=== PATIENT | male | born 1940 | race Caucasian/White ===

== ENCOUNTER 2017-08-25 19:12 | Inpatient (IN) | payer OTHER ==
[~2017-08-25] VITALS: Ht 177.8 cm; Wt 70.8 kg
--- NOTE | ~2017-08-25 | HC ---
[facility] [place] [address] CONSULTATION Name: SAVI WALLACE Room #: 357-P [facility]..#: [id number] Admission: 08/25/17 Attend Phys: Jin Roblero DO Discharge: 08/28/17 Date of : 38 Report #: [id number] THIS REPORT FOR: //name// CC: Jin Fragoso REASON FOR CONSULTATION: Elevated creatinine. REASON FOR PRESENTATION: Shortness of breath. HISTORY OF PRESENT ILLNESS: This is a 76-year-old who is known to have extensive past medical history including coronary artery disease, progressive aortic stenosis with an ejection fractions of around 40%. He is also known to have chronic kidney disease, used to see Dr. Lopez with [facility]; however, he had not seen him for the last few years. He presented with shortness of breath and orthopnea along with PNDs. No associated cough. No fever or chills. No change in the weight. No change in the medications. On presentation to the emergency room, he was found to have an elevated creatinine at 2.6. His remote labs revealed as of 2005, his creatinine was around 2.1. Most recent creatinine was up to 3.3 as of this morning mandating a nephrology consultation. As I have stated, he is known to have chronic kidney disease; however, unfortunately he did not follow up with his physicians for some years now. PAST MEDICAL HISTORY: 1. Status post CABG. 2. Diabetes mellitus. 3. Hyperlipidemia. 4. AFib. 5. Aortic stenosis. MEDICATIONS: 1. Doxycycline. 2. Glipizide. 3. Aspirin. 4. Allopurinol. 5. Atorvastatin. 6. Felodipine. 7. Carvedilol. ALLERGIES: PENICILLIN. SOCIAL HISTORY: He was exposed to asbestos. Never been a smoker. FAMILY HISTORY: Premature coronary artery disease present. REVIEW OF SYSTEMS: [facility] [address] [place] [address] CONSULTATION Name: MADISONSAVI Tu Room #: 357-P [facility]#: [id number] Admission: 08/25/17 Attend Phys: Jin Roblero DO Discharge: 08/28/17 Date of : 38 Report #: [id number] GENERAL: Significant for weakness. CARDIOVASCULAR: As per the history of present illness. PULMONARY: Significant shortness of breath. GASTROINTESTINAL: No nausea or vomiting. GENITOURINARY: No frequency, no urgency. PHYSICAL EXAMINATION: VITAL SIGNS: Blood pressure 129/64. HEAD AND NECK: No jugular venous distention. CHEST: Minimal rhonchi. CARDIOVASCULAR: Regular with no rub. There is a blowing systolic murmur aortic stenosis. ABDOMEN: Soft and nontender. LOWER EXTREMITIES: No edema. LABORATORY VALUES: Reviewed. Thrombocytopenia, present. With diuresis, his BUN and his creatinine has . IMAGING: Including his chest x-ray reviewed. ASSESSMENT, IMPRESSION, AND PLAN: 1. Chronic kidney disease. 2. Severe aortic stenosis. 3. Coronary artery disease, post coronary artery bypass graft. 4. From the renal perspective, the patient seems to have chronic kidney disease with lack of followup with his upfitter. I encouraged him to keep following up with his upfitter. He needs a baseline diuretics and he was started on torsemide. 5. Avoid aggressive diuresis. Most of his symptoms are due to his aortic stenosis and I will defer the management of his coronary artery disease, aortic stenosis to the primary team and the cardiology. <ELECTRONICALLY SIGNED> By: Jam Cabezas MD 08/30/17 0953 1020 1043 Jam Cabezas MD /nt
--- NOTE | ~2017-08-25 | EKG ---
[place] [address] [facility] [employer] [place] [address] ELECTROCARDIOGRAM REPORT Name: SAVI WALLACE Room #: 357-P ADM IN M.R.#: [id number] Admission: 08/25/17 Attend Phys: Jin Roblero DO Discharge: Date of : 38 Report #: [id number] THIS REPORT FOR: //name// [facility] ED Test Date: 2017-08-25 Test Time: 19:26:38 Pat Name: SAVI WALLACE Department: Room: 357 Gender: M Ovens Supervisor: JENNIFER : 1940 Requested By: Agusto Villalpando Order Number: [id number] MD: Anoop Dong Measurements Intervals [place] Rate: 82 P: 66 NE: 60 QRS: -86 QRSD: 171 T: 88 QT: 472 QTc: 552 Interpretive Statements Sinus rhythm Leftward axis Left bundle branch block No previous ECGs available for comparison Electronically Signed On 08-26-2017 10:10:25 SOLUTIONS ANALYST by Anoop Dong [email or web address] <ELECTRONICALLY SIGNED> By: Anoop Dong MD, [facility] 08/26/17 1010 1926 25 Anoop Dong MD, FACC /EPI
--- NOTE | ~2017-08-25 | HC ---
[facility] [place] [address] CONSULTATION Name: MADISONSAVI Room #: 357-P [facility] IN ..#: [id number] Admission: 08/25/17 Attend Phys: Jin Roblero DO Discharge: Date of : 38 Report #: [id number] THIS REPORT FOR: //name// CC: Jin Fragoso REASON FOR CONSULTATION: Shortness of breath. HISTORY OF PRESENT ILLNESS: The patient is a 76-year-old gentleman who is a patient of Dr. Garret Dewey. He has a history of coronary artery disease with remote bypass surgery with a left internal mammary to the LAD, vein graft to the posterior descending and vein graft to the diagonal branches. He has a history of progressive aortic stenosis, probably now severe and an ejection fraction in the 40-45% range. He underwent coronary angiography within the year, which demonstrated a patent CARROLL vein graft to distal right coronary and diagonal branches and moderate [place] vessel disease. He is vein graft dependent. An echocardiogram in October 2016, demonstrated an aortic valve area of 0.7 cm2 with an ejection fraction in the 40-45% range and [id number] mitral insufficiency. Valve intervention has been discussed, although not as of yet performed. to complicate matters his history includes chronic kidney disease and asbestosis. He now presents with increasing shortness of breath with orthopnea and paroxysmal nocturnal dyspnea. He has had a nonproductive cough. He denies fevers or chills. He has had mild lower extremity edema. He denies chest heaviness or pressure. No history of palpitations, near syncope, or syncope. ALLERGIES: To PENICILLIN and IODINATED CONTRAST. MEDICATIONS: Include glipizide 15 mg daily, aspirin, Januvia 50 mg daily, allopurinol 100 mg daily, terazosin 10 mg daily, atorvastatin 80 mg daily, Zantac, felodipine ER 10 mg twice daily, carvedilol 25 mg twice daily, Plavix 75 mg daily, and clonidine 0.2 mg daily. PAST MEDICAL HISTORY: Medical records have been reviewed and include a history of right femoral endarterectomy, bilateral lower extremity stenting, chronic kidney disease, coronary artery bypass grafting in 2005 at [facility], prostatectomy for prostate cancer, dyslipidemia, and longstanding diabetes. SOCIAL HISTORY: He has never been a smoker. 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 FAMILY HISTORY: Notable for premature coronary artery disease. REVIEW OF SYSTEMS: All systems negative [place] [address] CONSULTATION Name: SAVI WALLACE Room #: 357-P [facility] IN ..#: [id number] Admission: 08/25/17 Attend Phys: Jin Roblero DO Discharge: Date of : 38 Report #: [id number] PHYSICAL EXAMINATION: GENERAL: He is a pleasant gentleman who is mildly dyspneic, although talking in full sentences. VITAL SIGNS: Blood pressure is 120/58, heart rate of 100 and regular, he is afebrile, 5 feet 10 inches tall, and 156 pounds. HEENT: There are neither xanthelasma, subcutaneous xanthomata, oral mucosal or digital cyanosis or kyphoscoliosis present. CHEST: Reveals diminished breath sounds at both bases. CARDIAC: Reveals regular rate and rhythm with harsh 3/6 systolic ejection murmur at the base. Jugular venous pressure is elevated today at angle of the mandible. ABDOMEN: Soft and nontender. EXTREMITIES: Reveal trace edema. Radial pulses are 2+. NEUROLOGIC: He is alert with a nonfocal exam. LABORATORY DATA: Sodium is 141, potassium 4.8, creatinine 2.6. ProBNP of 16,000. Troponin 2.56. White count 7.5, hemoglobin 10, hematocrit 30, platelet count 73,000. Chest x-ray demonstrates cardiomegaly with interstitial infiltrates. IMPRESSION: 1. Acute on chronic systolic heart failure, ejection fraction 40-45%. 2. Aortic stenosis, probably severe. 3. Coronary artery disease with remote bypass surgery, vein graft dependent circulation with recent favorable angiography. 4. Elevated troponin, suspect type 2 myocardial infarction, supply demand mismatch in the setting of hypoxemia, heart failure and renal failure. No angina. 5. Chronic kidney disease. 6. Peripheral vascular disease with peripheral stenting. 7. Prior carotid endarterectomy. 8. History of asbestosis. RECOMMENDATIONS: 1. IV Lasix. 2. Echocardiogram with Doppler. 3. Dietary salt restriction. 4. We will review fairly recent coronary angiography, may need to look into the possibility of aortic valve replacement sooner rather than later. His surgical risk is high and he probably would qualify for TAVR, we will defer this Dr. Dewey. [address] [address] CONSULTATION Name: SAVI WALLACE Room #: 357-P [facility] IN M.R.#: [id number] Admission: 08/25/17 Attend Phys: Jin Roblero DO Discharge: Date of : 38 Report #: [id number] Thank you for asking me to participate in his care. <ELECTRONICALLY SIGNED> By: Anoop Dong MD, FACC 08/28/17 0853 0923 1226 Anoop Dong MD, FACC /nt
[2017-08-25 19:14] VITALS: BP 138/57
[2017-08-25 19:49] LABS: HEMATOCRIT 30.2 % (42.0-52.0); HEMOGLOBIN 10.4 gm/dL (14.0-18.0); MCH 30.8 pg (26.0-34.0); MCHC 34.3 g/dL (28.0-37.0); MCV 89.9 fL (80.0-100.0); RBC 3.36 mil/uL (4.50-6.00); RDW 15.2 % (10.5-14.5); WBC 7.5 thou/uL (4.0-11.0)
[2017-08-25] MEDS ORDERED: ASPIRIN325 PO (19:52)
[2017-08-25] MEDS ORDERED: COLACE100 MG PO (19:52)
[2017-08-25] MEDS ORDERED: ALLOPURINOL 10100 M2 PO (19:53)
[2017-08-25] MEDS ORDERED: KIONEX15 GM/60 M PO (19:54)
[2017-08-25] MEDS ORDERED: JANUVIA 50 MG T50 M1 PO (19:55)
[2017-08-25] MEDS ORDERED: TERAZOSIN HCL10 MG PO (19:55)
[2017-08-25] MEDS ORDERED: ZANTAC 150MG T150 MG PO (19:56)
[2017-08-25] MEDS ORDERED: LIPITOR80 MG PO (19:56)
[2017-08-25] MEDS ORDERED: NATEGLINIDE120 MG PO (19:57)
[2017-08-25] MEDS ORDERED: FELODIPINE ER10 MG PO (19:57)
[2017-08-25] MEDS ORDERED: COREG25 MG PO (19:58)
[2017-08-25] MEDS ORDERED: PLAVIX 75 MG TA75 M1 PO (19:58)
[2017-08-25] MEDS ORDERED: CLONIDINE HCL0.2 M2 PO (19:59)
[2017-08-25 20:02] LABS: CALCIUM 9.1 mg/dL (8.5-10.1); CREATININE 2.6 mg/dL (0.7-1.3); POTASSIUM 4.8 mmol/L (3.5-5.1)
[2017-08-25 20:11] LABS: ALBUMIN 3.7 g/dL (3.4-5.0); MAGNESIUM 2.4 mg/dL (1.8-2.4); TOTAL BILIRUBIN 0.6 mg/dL (<0.1-1.0); TOTAL PROTEIN 6.6 g/dL (6.4-8.2); TROPONIN-I 0.1 ng/mL (<0.06)
[2017-08-25 20:21] LABS: ABSOLUTE NEUTROPHILS 6.3 thou/uL (1.4-8.2); LARGE PLATELETS OCCASIONAL; PLATELET COUNT 73 thou/uL (150-400); PLATELET ESTIMATE DECREASED; POLYCHROMASIA SLIGHT
[2017-08-25 20:22] LABS: ANISOCYTOSIS SLIGHT
[2017-08-25 20:25] LABS: APTT 29.9 Seconds (24.5-32.8); INR 1.2
[2017-08-25 21:50] VITALS: BP 116/54
[2017-08-25] MEDS ORDERED: DOXYCYCLINE 10100 MG PO (23:35)
[2017-08-26] VITALS (7 sets, daily range): BP systolic 106–120; BP diastolic 58–67
[2017-08-26] MEDS ORDERED: KIONEX15 GM/60 M PO (01:48)
[2017-08-26] MEDS ORDERED: CENTRUM SILVER1 EAC4 PO (01:50)
[2017-08-26] MEDS ORDERED: METAMUCIL660 GM PO (01:53)
[2017-08-26] MEDS ORDERED: VITAMIN D1000 UNI1 PO (01:54)
[2017-08-26] MEDS ORDERED: GLUCOTROL5 MG PO (01:57)
[2017-08-26 08:26] LABS: CHOLESTEROL 105 mg/dL (<200); HDL CHOLESTEROL 49 mg/dL (>40); LDL CHOLESTEROL 47 mg/dL (<100); TC:HDL 2.1 Ratio (Not establshd); TRIGLYCERIDE 47 mg/dL (<150); VLDL 9 mg/dL (<40)
[2017-08-26 08:29] LABS: SERUM ASSESSMENT Clear
[2017-08-26 23:05] LABS: GLYCOHEMOGLOBIN (HGB A1C) 5.7 % (4.8-5.6)
[2017-08-27 04:15] VITALS: BP 136/69
[2017-08-27 07:03] LABS: CALCIUM 8.5 mg/dL (8.5-10.1); CREATININE 3.3 mg/dL (0.7-1.3)
[2017-08-27 07:55] VITALS: BP 136/63
[2017-08-27 11:55] VITALS: BP 110/49
[2017-08-27 15:24] VITALS: BP 118/51
[2017-08-27 19:10] VITALS: BP 148/64
[2017-08-28 03:53] VITALS: BP 138/82
[2017-08-28 04:37] LABS: ABSOLUTE NEUTROPHILS 4.6 thou/uL (1.4-8.2); BASOPHILS 0.5 % (0.0-2.0); EOSINOPHILS 2.8 % (0.0-3.0); HEMATOCRIT 29.5 % (42.0-52.0); HEMOGLOBIN 9.8 gm/dL (14.0-18.0); LYMPHOCYTES 12.1 % (24.0-44.0); MCH 30.1 pg (26.0-34.0); MCHC 33.1 g/dL (28.0-37.0); MCV 90.9 fL (80.0-100.0); MONOCYTES 11.5 % (1.0-8.0); PLATELET COUNT 91 thou/uL (150-400); POLYS 73.1 % (36.0-66.0); RBC 3.24 mil/uL (4.50-6.00); RDW 15.1 % (10.5-14.5); WBC 6.2 thou/uL (4.0-11.0)
[2017-08-28 04:50] LABS: ALBUMIN 3.1 g/dL (3.4-5.0); CALCIUM 8.7 mg/dL (8.5-10.1); CREATININE 3.3 mg/dL (0.7-1.3); POTASSIUM 4.7 mmol/L (3.5-5.1); TOTAL BILIRUBIN 0.5 mg/dL (<0.1-1.0); TOTAL PROTEIN 6.2 g/dL (6.4-8.2)
[2017-08-28 07:42] VITALS: BP 129/64
[2017-08-28] MEDS ORDERED: CEFDINIR300 MG PO (10:14)
[2017-08-28] MEDS ORDERED: DEMADEX20 MG PO (10:33)
[2017-08-28 11:56] VITALS: BP 129/64
== END 2017-08-28 13:24 | disposition home or self-care (01) | DRG 280 ==
LOC: ER 19:12 → 3W 21:02 → EROBS 21:02 → 3W 22:50 → ENTRNSPT 08-28 13:06 → EDTRNSPTSTS 08-28 13:08 → 3W 08-28 13:24
PROVIDERS: Emergency Medicine; Internal Medicine; Nurse Practitioner Acute Care; Nurse Practitioner Family
DX: I21.4 Non-ST elevation (NSTEMI) myocardial infarction (principal); I50.23 Acute on chronic systolic (congestive) heart failure; I13.0 Hypertensive heart and chronic kidney disease with heart failure and stage 1 through stage 4 chronic kidney disease, or unspecified chronic kidney disease; D69.6 Thrombocytopenia, unspecified; E11.51 Type 2 diabetes mellitus with diabetic peripheral angiopathy without gangrene; I48.0 Paroxysmal atrial fibrillation; I25.10 Atherosclerotic heart disease of native coronary artery without angina pectoris; I35.0 Nonrheumatic aortic (valve) stenosis; N18.3 Chronic kidney disease, stage 3 (moderate); E78.00 Pure hypercholesterolemia, unspecified; Z95.1 Presence of aortocoronary bypass graft; Z90.79 Acquired absence of other genital organ(s); Z79.82 Long term (current) use of aspirin; Z95.820 Peripheral vascular angioplasty status with implants and grafts; Z79.899 Other long term (current) drug therapy; Z88.0 Allergy status to penicillin; Z91.041 Radiographic dye allergy status; I25.2 Old myocardial infarction; Z82.49 Family history of ischemic heart disease and other diseases of the circulatory system
CPT/HCPCS: 10879

== ENCOUNTER 2018-08-27 23:06 | Inpatient (IN) | payer OTHER ==
[~2018-08-27] VITALS: Ht 177.8 cm; Wt 65.8 kg
--- NOTE | ~2018-08-27 | HC ---
[facility] [address] CONSULTATION Name: MADISONSAVI Room #: 202-P [facility] IN ..#: [id number] Admission: 08/28/18 Attend Phys: Osman Man MD Discharge: Date of : 38 Report #: [id number] THIS REPORT FOR: //name// CC: Rashaun Man Wes Fragoso DATE OF SERVICE: 08/28/2018 NEPHROLOGY CONSULTATION REASON FOR CONSULTATION: Elevated creatinine. HISTORY OF PRESENT ILLNESS: The patient is known to our service, was seen 1 year ago when he was admitted at that time with pulmonary issues and was found to have chronic kidney disease with creatinine of 3.3, had been followed for some time by Dr. Lopez, was lost to follow up and has continued to not follow up with his visiting teacher even after discharge at that time despite being advised to follow up. The patient has critical and severe aortic stenosis, was referred for TAVR at [facility], was turned down for the procedure due to high risk. He has a bad mitral valve, poor LV function and chronic kidney disease, all of which made him a poor candidate for surgery. At this time, he was admitted with basically shortness of air with some chest discomfort. His echocardiogram done today shows worsening disease. PAST MEDICAL HISTORY: He has had previous coronary bypass surgery as well as stent placement for coronary artery disease as mentioned, has the poor cardiac functioning. In addition, he has a history of hypertension, peripheral arterial disease, diabetes, and history of prostate cancer. HOME MEDICATIONS: As listed include allopurinol 100 mg daily, aspirin 325 mg daily, Lipitor 80 mg daily, carvedilol 25 mg b.i.d., vitamin D 1000 units daily, clonidine 0.2 mg daily, Plavix 75 mg daily, felodipine 10 mg daily, Kayexalate 15 grams daily, terazosin 10 mg daily, torsemide 40 mg daily. FAMILY HISTORY: Positive for heart disease, lung cancer and diabetes. REVIEW OF SYSTEMS: GENERAL: He has been feeling poorly, easily short-winded, occasional leg swelling. EYES: Vision is fair. ENT: Hearing okay. Swallows okay. No mouth sores. ENDOCRINE: Positive for the diabetes. RESPIRATORY: Easily short-winded. [address] [address] CONSULTATION Name: SAVI WALLACE Room #: 202-P [facility] IN ..#: [id number] Admission: 08/28/18 Attend Phys: Osman Man MD Discharge: Date of : 38 Report #: [id number] CARDIAC: Some chest pain. GASTROINTESTINAL: Appetite is fair. No diarrhea or bloody stools. GENITOURINARY: He says he has a pretty good stream. NEUROLOGIC: Generalized weakness. No seizure, syncope or stroke. PHYSICAL EXAMINATION: GENERAL: This is a chronically ill appearing patient. SKIN: Unremarkable. SKELETAL: Well developed, well nourished. HEENT: Extraocular movements are full. No scleral icterus. Hearing and vision intact. Mucous membranes are moist. Tongue, buccal mucosa benign. NECK: Supple, no carotid bruits or lymphadenopathy. CHEST: Clear to auscultation. HEART: Regular with a very prominent systolic murmur. ABDOMEN: Soft and nontender. EXTREMITIES: Show no edema. Pulses slightly diminished. LABORATORY DATA: The hemoglobin is only 8, platelets 129. Sodium 142, potassium 4, chloride 107, bicarbonate 22, creatinine 3.6, BUN 96. ASSESSMENT AND PLAN: 1. Chronic kidney disease. He has chronic kidney disease of really unknown etiology. There is certainly some component of cardiorenal involvement here. His urinalysis has not been done of late and we will check that with urine protein studies. His renal sonogram in the past has been okay. This is really an ancillary issue at this point as he has terminal cardiac failure, which is not amenable to intervention apparently and is certainly a candidate at this point for hospice or palliative care based on his cardiac situation. 2. Critical aortic stenosis. 3. Heart failure with reduced ejection fraction. 4. Mitral regurgitation. 5. Pulmonary hypertension. 6. History of prostate cancer. 7. History of hypertension. By: 1202 1734 Garret Smith MD /nt
[~2018-08-27 23:06] MED LIST: ALLOPURINOL 10100 M2 PO; ASPIRIN325 PO; CEFDINIR300 MG PO; CENTRUM SILVER1 EAC4 PO; CLONIDINE HCL0.2 M2 PO; COLACE100 MG PO; COREG25 MG PO; DEMADEX20 MG PO; DOXYCYCLINE 10100 MG PO; FELODIPINE ER10 MG PO; GLUCOTROL5 MG PO; JANUVIA 50 MG T50 M1 PO; KIONEX15 GM/60 M PO; LIPITOR80 MG PO; METAMUCIL660 GM PO; NATEGLINIDE120 MG PO; PLAVIX 75 MG TA75 M1 PO; TERAZOSIN HCL10 MG PO; VITAMIN D1000 UNI1 PO; ZANTAC 150MG T150 MG PO
[2018-08-27 23:08] VITALS: BP 120/63
[2018-08-27 23:31] LABS: ABSOLUTE NEUTROPHILS 8.6 thou/uL (1.4-8.2); BASOPHILS 0.8 % (0.0-2.0); EOSINOPHILS 1.8 % (0.0-3.0); HEMATOCRIT 23.1 % (42.0-52.0); HEMOGLOBIN 7.7 gm/dL (14.0-18.0); MCH 28.9 pg (26.0-34.0); MCHC 33.2 g/dL (28.0-37.0); MCV 86.9 fL (80.0-100.0); MONOCYTES 7.5 % (1.0-8.0); PLATELET COUNT 130 thou/uL (150-400); POLYS 81.9 % (36.0-66.0); RBC 2.66 mil/uL (4.50-6.00); RDW 15.6 % (10.5-14.5); WBC 10.6 thou/uL (4.0-11.0)
[2018-08-27 23:36] LABS: CALCIUM 8.2 mg/dL (8.5-10.1); CREATININE 3.7 mg/dL (0.7-1.3); POTASSIUM 3.9 mmol/L (3.5-5.1)
[2018-08-27 23:42] LABS: APTT 27.4 Seconds (24.5-32.8); INR 1.1; PROTIME 11.9 Seconds (9.3-11.4)
[2018-08-27 23:45] LABS: ALBUMIN 3.3 g/dL (3.4-5.0); TOTAL BILIRUBIN 0.3 mg/dL (<0.1-1.0); TOTAL PROTEIN 6.4 g/dL (6.4-8.2); TROPONIN-I 0.06 ng/mL (<0.06)
[2018-08-27 23:57] LABS: LARGE PLATELETS RARE
[2018-08-28] VITALS (8 sets, daily range): BP systolic 111–121; BP diastolic 57–666
--- NOTE | 2018-08-28 03:42 | NUR ---
PT ARRIVED UNIT AT ABOUT 0030. PT A/OX4, VITALS SIGNS STABLE, ASSESSMENT CHARTED. NO COMPLAINTS OF CHEST PAIN ON ARRIVAL. PT WAS ON HEPARIN DRIP GOING AT 11.99UNIT/KG/HR, ON 2L NC 02. ADMISSION ASSESSMENT COMPLETED, PT ABLE TO ANSWER QUESTIONS APPROPRIATELY. PT AMBULATED TO BATHROOM X1 ASSIST. UPON RETURNING TO BED FROM BATHROOM, PT WAS SOA. 02 INCREASED TO 4L WHICH SEEMED TO HELP. PT ENCOURAGED TO TAKE SHORT DEEP BRAETHS WHICH SEEMED TO HELP WELL. PT RESTED WELL FOR THE REST OF NIGHT. WILL CONTINUE TO CLOSELY MONITOR.
[2018-08-28 06:53] LABS: HEMATOCRIT 24.3 % (42.0-52.0); MCH 28.6 pg (26.0-34.0); MCHC 32.8 g/dL (28.0-37.0); MCV 87.3 fL (80.0-100.0); RBC 2.79 mil/uL (4.50-6.00); RDW 15.6 % (10.5-14.5); WBC 6.9 thou/uL (4.0-11.0)
[2018-08-28 07:05] LABS: CALCIUM 8.5 mg/dL (8.5-10.1); CREATININE 3.6 mg/dL (0.7-1.3)
[2018-08-28 07:06] LABS: APTT 30.2 Seconds (24.5-32.8); INR 1.1; PROTIME 11.7 Seconds (9.3-11.4)
--- NOTE | 2018-08-28 08:28 | EKG ---
[place] [address] [facility] [place] [address] ELECTROCARDIOGRAM REPORT Name: SAVI WALLACE Room #: 202-P ADM IN M.R.#: [id number] Admission: 08/28/18 Attend Phys: Osman Man MD Discharge: Date of : 38 Report #: [id number] THIS REPORT FOR: //name// [facility] ED Test Date: 2018-08-27 Test Time: 23:12:01 Pat Name: SAVI WALLACE Department: Room: 202 Gender: M Cloud Security Architect: PAULA : 1940 Requested By: Dominga Quijano Order Number: [id number] MD: Anoop Dong Measurements Intervals [place] Rate: 74 P: -36 [place]: 198 QRS: -82 QRSD: 179 T: 94 QT: 500 QTc: 555 Interpretive Statements Sinus rhythm RBBB and LAFB Abnrm T, consider ischemia, anterolateral lds Compared to ECG 08/25/2017 19:26:38 no significant change was found Electronically Signed On 08-28-2018 8:28:46 DOCENT COORDINATOR by Anoop Dong [email or web address] <ELECTRONICALLY SIGNED> By: Anoop Dong MD, [facility] 08/28/18 0828 2312 2312 Anoop Dong MD, [facility] /EPI
--- NOTE | 2018-08-28 08:33 | EKG ---
[place] [address] [facility] [place] [address] ELECTROCARDIOGRAM REPORT Name: SAVI WALLACE Room #: 202-P ADM IN M.R.#: [id number] Admission: 08/28/18 Attend Phys: Osman Man MD Discharge: Date of : 38 Report #: [id number] THIS REPORT FOR: //name// [facility] Test Date: 2018-08-28 Test Time: 06:41:26 Pat Name: SAVI WALLACE Department: Room: 202 P Gender: M Public Service Administrator: GERONIMO : 1940 Requested By: Paloma Forbes Order Number: [id number] MD: Anoop Dong Measurements Intervals [place] Rate: 78 P: 0 DE: 54 QRS: -79 QRSD: 175 T: 106 QT: 524 QTc: 598 Interpretive Statements Sinus rhythm Ventricular premature complex RBBB and LAFB Compared to ECG 08/25/2017 19:26:38 Ventricular premature complex(es) now present Electronically Signed On 08-28-2018 8:33:29 STUDIO ASSISTANT by Anoop Dong [email or web address] <ELECTRONICALLY SIGNED> By: Anoop Dong MD, [facility] 08/28/18 0833 0 Anoop Dong MD, [facility] /EPI
--- NOTE | 2018-08-28 10:08 | 2DMMODE ---
[facility] [address] [place] [address] 2 D/M-MODE ECHOCARDIOGRAM Name: SAVI WALLACE Room #: 202-P [facility] IN [facility]#: [id number] Admission: 08/28/18 Attend Phys: Osman Man MD Discharge: Date of : 38 Date of Service: 08/28/18 1008 Report #: [id number] THIS REPORT FOR: //name// APPROVED REPORT Study performed: 08/28/2018 09:08:33 EXAM: Comprehensive 2D, Doppler, and color-flow Echocardiogram Patient Location: Bedside Room #: 202 Status: routine BSA: 1.82 HR: 90 bpm BP: 113/57 mmHg Rhythm: Irregular Other Information Study Quality: Good Indications Chest pain, elevated troponin. Hx: Aortic stenosis, CABG, ISCM, CHF, Afib with ablation. HTN, HLP, DM. 2D Dimensions RVDd: 45.40 mm IVSd: 12.56 (7-11mm) LVOT Diam: 20.53 (18-24mm) LVDd: 59.50 mm PWd: 14.27 (7-11mm) Ascending Ao: 34.96 (22-36mm) LVDs: 50.23 (25-40mm) Aortic Root: 35.21 mm Volumes Left Atrial Volume (Systole) Single Plane 4CH: 98.76 mL Single Plane 2CH: 115.74 mL LA ESV Index: 62.00 mL/m2 Aortic Valve AoV Peak Mich.: 4.03 m/s AO Peak Gr.: 64.86 mmHg LVOT Max P.22 mmHg AO Mean Gr.: 38.79 mmHg AO V2 Mean: 2.97 m/s LVOT Max V: 0.75 m/s AO V2 VTI: 88.52 cm KAMLA Vmax: 0.61 cm2 Mitral Valve [facility] [place] [address] 2 D/M-MODE ECHOCARDIOGRAM Name: SAVI WALLACE Room #: 202-P [facility] IN ..#: [id number] Admission: 08/28/18 Attend Phys: Osman Man MD Discharge: Date of : 38 Date of Service: 08/28/18 1008 Report #: [id number] MV Decel. Time: 209.53 ms MV PHT: 61.01 ms MVA (PHT): 3.61 cm2 Pulmonary Valve PV Peak Mich.: 0.92 m/s PV Peak Gr.: 3.41 mmHg Tricuspid Valve TR Peak Mich.: 3.69 m/s RAP Estimate: 15.00 mmHg TR Peak Gr.: 54.38 mmHg PA Pressure: 69.00 mmHg Left Ventricle Left ventricle is mildly dilated. Mild concentric left ventricular hypertrophy. Left ventricular systolic function is moderate to severely decreased. LVEF is 35%. This study is not technically sufficient to allow evaluation of the LV diastolic function. Right Ventricle Right ventricle is mildly dilated. Right ventricle is moderately hypokinetic. Atria Left atrium is severely dilated. Right atrium is severely dilated. Aortic Valve Aortic valve is heavily calcified. Trace aortic regurgitation. There is severe valvular aortic stenosis. Calculated aortic valve area is 0.6 cm2 with maximum pressure gradient of 65 mmHg and mean pressure gradient of 39 mmHg. Mitral Valve Mitral valve leaflets are thickened and calcified. Moderate-heavy mitral annular calcification. Moderate to severe mitral regurgitation Moderate mitral stenosis with a mean pressure gradient of 7mmHg. Tricuspid Valve The tricuspid valve is normal in structure. Mild to moderate tricuspid regurgitation. Estimated PAP of 65-70mmHg. Pulmonic Valve The pulmonary valve is normal in structure. Mild pulmonic regurgitation. [address] [address] 2 D/M-MODE ECHOCARDIOGRAM Name: SAVI WALLACE Room #: 202-P [facility] IN .#: [id number] Admission: 08/28/18 Attend Phys: Osman Man MD Discharge: Date of : 38 Date of Service: 08/28/18 1008 Report #: [id number] Great Vessels The aortic root is normal in size. The ascending aorta is normal in size. IVC is dilated and collapses <50% with inspiration. Pericardium There is no pericardial effusion. <Conclusion> Left ventricular systolic function is moderate to severely decreased. LVEF is 35%. Both atria are severely dilated. Aortic valve is heavily calcified, severely stenotic. Calculated aortic valve area is 0.6 cm2 with maximum pressure gradient of 65 mmHg and mean pressure gradient of 39 mmHg. Mitral valve leaflets are thickened and calcified. Moderate-heavy mitral annular calcification. Moderate to severe mitral regurgitation. Mild-moderate mitral stenosis with a mean pressure gradient of 7mmHg. Mild to moderate tricuspid regurgitation. Estimated pulmonary artery pressure of 65-70mmHg. There is no pericardial effusion. <ELECTRONICALLY SIGNED> By: Anoop Dong MD, FACC 08/28/18 1008 1008 Anoop Dong MD, FACC /INF
--- NOTE | 2018-08-28 18:01 | NUR ---
ASSESSMENT DOCUMENTED. VSS. SR ON THE MONITOR. PAIN REPORTED IN L LEG. NO CP. PT RESTING IN BED WITH CALL LIGHT IN REACH. WILL CONTINUE TO MONITOR.
[2018-08-28 19:35] LABS: URINE CLARITY CLEAR; URINE COLOR YELLOW; URINE GLUCOSE-RANDOM* NEGATIVE (Negative); URINE PROTEIN (DIPSTICK) NEGATIVE (Negative)
[2018-08-28 19:36] LABS: URINE BILIRUBIN NEGATIVE (Negative); URINE BLOOD NEGATIVE (Negative); URINE KETONES NEGATIVE (Negative); URINE LEUKOCYTES NEGATIVE (Negative); URINE NITRITE NEGATIVE (Negative); URINE UROBILINOGEN 0.2 E.U./dl (0.2-1.0)
[2018-08-29 00:06] VITALS: BP 123/69
[2018-08-29 04:30] VITALS: BP 113/62
--- NOTE | 2018-08-29 05:18 | NUR ---
ASSUMED PT CARE AT 1900 WITH REPORT TAKEN, NO SIGN OF DISTRESS NOTED IN PT, PT IS ALERT AND ORIENTED WITH FAMILY AT BEDSIDE. DENIES ANY NEED AT THIS TIME, ASSESSMENT MONITORED AND DOCUMENTED, FALL PRECAUTION IN PLACE. BLOOD SUGAR CHECKED AND TREATED, SCHEDULED MEDICATION ADMINISTERED TO PT. RETAIL PHARMACIST NOTIFIED ABOUT PT'S CONTINUOUS SHORTNESS OF AIR UPON AMBULATING. PRN DUONEB WAS ORDERED AND ADMINISTERED TO PT. NO FURTHER SIGN OF DISTRESS NOTED, PT REST COMFORTABLY THROUGHOUT THE NIGHT.
[2018-08-29 05:56] LABS: ALBUMIN 3.4 g/dL (3.4-5.0); CALCIUM 8.7 mg/dL (8.5-10.1); CREATININE 3.9 mg/dL (0.7-1.3); PHOSPHORUS 5.3 mg/dL (2.5-4.9); POTASSIUM 4.2 mmol/L (3.5-5.1)
[2018-08-29 07:20] VITALS: BP 125/62
[2018-08-29 11:05] VITALS: BP 115/61
--- NOTE | 2018-08-29 13:09 | NUR ---
FAXED REFERRAL TO [facility]. LEFT MSG WITH RENU IN ADM. THAT REFERRAL SENT. DCP TO FOLLOW.
[2018-08-29] MEDS ORDERED: IPRAT-ALBUT 0.5-3 ML INH (14:44)
[2018-08-29] MEDS ORDERED: ASPIR 8181 MG PO (14:44)
[2018-08-29] MEDS ORDERED: TOPROL XL25 MG PO (14:44)
[2018-08-29] MEDS ORDERED: TYLENOL325 MG PO (14:44)
[2018-08-29] MEDS ORDERED: PENTOXIFYLLINE400 MG PO (14:44)
[2018-08-29 14:53] VITALS: BP 115/61
[2018-08-29 14:57] VITALS: BP 115/61
--- NOTE | 2018-08-29 15:13 | NUR ---
MET WITH PATIENT, AND REVIEWED HOSPICE SERVICES. THEY ARE INTERESTED IN HOSPICE SERVICES AT HOME. THEY HAVE NO PREFERENCE FOR HOSPICE AGENCY. [facility] MET WITH PATIENT FAMILY IMMEDIATELY. FAMILY,PATIENT AGREEABLE TO DC HOME WITH HOSPICE SERVICES. [facility] TO DELIVER OXYGEN TO HOME TODAY AT 1630. PATIENT TO DC TODAY.
--- NOTE | 2018-08-29 15:50 | NUR ---
FAXED DC ORDERS/SUMMARY TO [facility]. SPOKE WITH RENU IN ADM. AND HE RECEIVED ORDERS. SW TO NOTIFY FAMILY OF TIME OF TRANSPORT. CHART COPY PER [place]. RN TO CALL REPORT TO [phone].
--- NOTE | 2018-08-29 15:59 | NUR ---
ASSESSMENT DOCUMENTED. VSS. NSR ON THE MONITOR. PT REPORTS NO PAIN/CHEST PAIN. NO COMPLAINTS. IV AND HEART MONITOR DC'D. PT RESTING IN CHAIR WITH CALL LIGHT IN REACH. WILL CONTINUE TO MONITOR.
== END 2018-08-29 16:15 | disposition hospice, home (50) | DRG 682 ==
LOC: ER 23:06 → 2N 08-28 01:02
PROVIDERS: Internal Medicine Nephrology; Nurse Practitioner Family; Student in an Organized Health Care Education/Training Program; ADMIT Hospitalist
DX: N17.9 Acute kidney failure, unspecified (principal); E43 Unspecified severe protein-calorie malnutrition; I25.110 Atherosclerotic heart disease of native coronary artery with unstable angina pectoris; I50.20 Unspecified systolic (congestive) heart failure; I24.9 Acute ischemic heart disease, unspecified; I13.0 Hypertensive heart and chronic kidney disease with heart failure and stage 1 through stage 4 chronic kidney disease, or unspecified chronic kidney disease; I35.0 Nonrheumatic aortic (valve) stenosis; E78.00 Pure hypercholesterolemia, unspecified; N18.3 Chronic kidney disease, stage 3 (moderate); E11.51 Type 2 diabetes mellitus with diabetic peripheral angiopathy without gangrene; E11.22 Type 2 diabetes mellitus with diabetic chronic kidney disease; I34.0 Nonrheumatic mitral (valve) insufficiency; I27.20 Pulmonary hypertension, unspecified; E78.5 Hyperlipidemia, unspecified; I48.2 Chronic atrial fibrillation; D64.9 Anemia, unspecified; I25.5 Ischemic cardiomyopathy; I65.22 Occlusion and stenosis of left carotid artery; Z51.5 Encounter for palliative care; Z85.46 Personal history of malignant neoplasm of prostate; Z95.820 Peripheral vascular angioplasty status with implants and grafts; Z88.0 Allergy status to penicillin; Z91.041 Radiographic dye allergy status; Z95.1 Presence of aortocoronary bypass graft; Z82.49 Family history of ischemic heart disease and other diseases of the circulatory system; Z83.3 Family history of diabetes mellitus; Z80.1 Family history of malignant neoplasm of trachea, bronchus and lung; I25.2 Old myocardial infarction; Z98.49 Cataract extraction status, unspecified eye; Z79.82 Long term (current) use of aspirin; Z79.899 Other long term (current) drug therapy
CPT/HCPCS: 10081